=== PATIENT | male | born 1975 ===

== ENCOUNTER → 2024-07-29 09:31 | Outpatient (ROUT) | payer SELFPAY ==
[2024-07-29 09:55] LABS: Add Manual Diff / Slide Review NO; Basophils Absolute Auto 100 /uL (0-100); Eosinophils Absolute Auto 400 /uL (0-450); Eosinophils Percent Auto 4.2 % (2-4); Hematocrit 43.3 % (41-53); Hemoglobin 14.7 g/dL (13.5-17.5); Lymphocytes Absolute Auto 4400 /uL (1100-4500); Lymphocytes Percent Auto 51.2 % (25-40); Mean Corpuscular Hemoglobin 29.5 PG (26-34); Mean Corpuscular Volume 86.7 fL (80-100); Monocytes Absolute Auto 500 /uL (0-900); Monocytes Percent Auto 6.3 % (3-14); Neutrophils Absolute Auto 3200 /uL (1500-7000); Neutrophils Percent Auto 37.3 % (50-75); Platelet Count 301 X10^3/uL (150-400); Red Blood Cell Count 4.99 X10^6/uL (4.5-5.9); Red Cell Distribution Width 13.7 % (11.6-14.8); White Blood Cell Count 8.6 X10^3/uL (4.5-11.0)
[2024-07-29 10:15] LABS: Alanine Aminotransferase 42 IU/L (<50); Albumin 4.1 g/dL (3.5-5.0); Albumin Globulin Ratio 1.7 (1.0-2.8); Alkaline Phosphatase 61 U/L (38-126); Aspartate Aminotransferase 31 IU/L (17-59); Bilirubin Total 0.5 mg/dL (0.2-1.3); Blood Urea Nitrogen 15 mg/dL (9-20); Calcium 9.4 mg/dL (8.4-10.2); Carbon Dioxide 23 mmol/L (22-32); Chloride 106 mmol/L (98-107); Cholesterol 223 mg/dL (140-199); Estimated Glomerular Filt Rate > 60 mL/min (>60); Globulin 2.4 g/dL (1.7-4.1); Glucose 97 mg/dL (70-99); HDL Cholesterol 39 mg/dL (40-60); HEMOLYSIS 17 (0-50); LDL Cholesterol Calculated 141 mg/dL (<100); Potassium 3.9 mmol/L (3.4-5.1); Sodium 138 mmol/L (137-145); Total Protein 6.5 g/dL (6.3-8.2); Triglycerides 215 mg/dL (35-150)
[2024-07-29 10:18] LABS: Hemoglobin A1C% w Est Avg Glu 5.6 % (4.0-6.0)
[2024-07-29 10:41] LABS: Thyroid Stimulating Hormone 1.41 uIU/mL (0.47-4.68)
== END ==
LOC: LAB 09:32
PROVIDERS: Visit Provider Registered Nurse
DX: F20.9 Schizophrenia, unspecified (principal)
CPT/HCPCS: 36415; 80053; 80061; 83036; 84443; 85025

== ENCOUNTER → 2024-11-25 08:17 | Outpatient (ROUT) | payer SELFPAY ==
[2024-11-25 08:27] LABS: Add Manual Diff / Slide Review NO; Hematocrit 45.5 % (41-53); Hemoglobin 15.4 g/dL (13.5-17.5); Lymphocytes Absolute Auto 4300 /uL (1100-4500); Mean Corpuscular HGB Conc 33.8 % (30-36); Mean Corpuscular Hemoglobin 29.4 PG (26-34); Mean Corpuscular Volume 87.0 fL (80-100); Platelet Count 310 X10^3/uL (150-400)
[2024-11-25 08:52] LABS: Alanine Aminotransferase 40 IU/L (<50); Albumin 4.1 g/dL (3.5-5.0); Albumin Globulin Ratio 1.7 (1.0-2.8); Alkaline Phosphatase 68 U/L (38-126); Blood Urea Nitrogen 14 mg/dL (9-20); Calcium 9.0 mg/dL (8.4-10.2); Carbon Dioxide 22 mmol/L (22-32); Chloride 107 mmol/L (98-107); Cholesterol 150 mg/dL (140-199); Estimated Glomerular Filt Rate > 60 mL/min (>60); Globulin 2.4 g/dL (1.7-4.1); Glucose 109 mg/dL (70-99); HDL Cholesterol 38 mg/dL (40-60); HEMOLYSIS 25 (0-50); Potassium 4.0 mmol/L (3.4-5.1); Sodium 138 mmol/L (137-145); Total Protein 6.5 g/dL (6.3-8.2); Triglycerides 156 mg/dL (35-150)
[2024-11-25 08:57] LABS: Hemoglobin A1C% w Est Avg Glu 6.1 % (4.0-6.0)
[2024-11-25 09:24] LABS: Thyroid Stimulating Hormone 1.78 uIU/mL (0.47-4.68)
== END ==
PROVIDERS: Visit Provider Registered Nurse
DX: F20.9 Schizophrenia, unspecified (principal)
CPT/HCPCS: 36415; 80053; 80061; 83036; 84443; 85025